=== PATIENT | female | born 1960 | race Caucasian/White ===

== ENCOUNTER 2024-02-19 06:09 | Day surgery (SDC) | payer SELFPAY, OTHER ==
[2024-02-19] VITALS (15 sets, daily range): BP systolic 123–144; BP diastolic 58–81; BMI 22.1
[2024-02-19] MEDS: TYLENOL 1000 MG PO (07:22)
[2024-02-19] MEDS: AFRIN NASAL SPRAY 2 SPRAYS NASAL (07:23)
[2024-02-19] MEDS: NORMOSOL-R 1000 IV (07:25)
[2024-02-19] MEDS: SUBLIMAZE 25 MCG IV ×2 (10:31→10:56)
== END 2024-02-19 12:18 | disposition home or self-care (01) ==
LOC: SDS 06:09
PROVIDERS: ATTENDING PHYSICIAN Otolaryngology; FAMILY PHYSICIAN Family Medicine; OTHER PHYSICIAN Ophthalmology Ophthalmic Plastic and Reconstructive Surgery
DX: Z41.1 Encounter for cosmetic surgery (principal); H04.301 Unspecified dacryocystitis of right lacrimal passage; H04.221 Epiphora due to insufficient drainage, right side; J98.8 Other specified respiratory disorders; J34.2 Deviated nasal septum
CPT/HCPCS: 31239; 68815; 30520

== ENCOUNTER 2024-02-21 06:24 | Observation (INO) | payer OTHER, SELFPAY ==
[2024-02-21 03:00] VITALS: BP 106/60
--- NOTE | 2024-02-21 03:20 | ED.GENMED ---
History of Present Illness
<Heather Vicente MD, Resident - Last Filed: 02/21/24 04:45>
General
Chief Complaint: Dehydration Symptoms
Source: patient and family
Time Seen by Provider: 02/21/24 03:06
History of Present Illness
History of Present Illness:
63-year-old female s/p septoplasty and tear duct surgery on 02/19/2024, presenting to the ED with epistaxis, nausea, vomiting, fatigue, chills. Patient stable and afebrile . Patient's is present in the room and he states that patient had 1
episode of vomiting this morning. She was given ondansetron from the plastic surgeon which made her symptoms worse. She also complains of soreness in her mouth.
Past History
<Heather Vicente MD, Resident - Last Filed: 02/21/24 04:45>
Past History
ED Past Medical History: GERD (Gastritis) and Psychiatric (anxiety)
ED Past Surgical History: Appendectomy, Tonsilectomy and Other (Breast augmentation)
Social History
Tobacco: Non-smoker
Alcohol: Occasional
Drug: None
Personal:
Living: with family
Employment: Employed
Family History
Family History: Other (Mom COPD, pancreatic cancer and her dad)
Review of Systems
<Heather Vicente MD, Resident - Last Filed: 02/21/24 04:45>
Review of Systems
Constitutional: Reports fatigue and chills
EENT: Reports tearing, mouth pain and other (Epistaxis)
Phy Exam
<Heather Vicente MD, Resident - Last Filed: 02/21/24 04:45>
General Physical Exam
General Presentation: mild distress
ENT Exam
Additional ENT: nose splint, erythema seen in post pharynx on left
Cardiovascular Exam
Cardiovascular Exam: regular rate/rhythm
Pulmonary Exam
Pulmonary Exam: lungs clear
Gastrointestinal Exam
Gastrointestinal Exam: normal bowel sounds, non tender and soft
Skin Exam
Skin Exam: warm/dry and other (poor skin turgor )
Course
<Heather Vicente MD, Resident - Last Filed: 02/21/24 04:45>
Orders/Labs/Results
Orders:
Orders
02/21/24 03:17
0.9% Sodium Chloride 500 ml [Nss] 500 ml IV BOLUS
02/21/24 03:34
Complete Blood Count/With Diff Urgent
Comprehensive Metabolic Panel Urgent
Prothrombin Time Urgent
02/21/24 04:21
HYDROmorphone [Dilaudid] 0.5 mg IV NOW STA
Metoclopramide [Reglan] 10 mg IV NOW STA
02/21/24 05:00
Flush (0.9% Sodium Chloride) [Flush (Nss)] See Dose Instructions IV PER PROTOCOL
Abnormal Lab Results
02/21/24
03:34
Absolute Neuts (auto) 7.6 H 10^3/uL
(1.4-6.5)
Absolute Monos (auto) 0.8 H 10^3/uL
(0.1-0.6)
Neutrophils % 78.2 H %
(42.2-75.2)
Lymphocytes % 13.1 L %
(20.5-51.1)
PT 16.1 H Sec
(11.4-14.6)
Glucose 101 H mg/dl
(70-99)
02/21/24 03:34
02/21/24 03:34
Vital Signs
Initial and Last Documented VS:
Initial Vital Signs
Pulse Resp BP Pulse Ox
66 26 106/60 100
02/21/24 03:00 02/21/24 03:00 02/21/24 03:00 02/21/24 03:00
Last Documented Vital Signs
Pulse Resp BP Pulse Ox
66 26 136/67 100
02/21/24 03:00 02/21/24 03:00 02/21/24 04:31 02/21/24 03:00
<Beck Dewey, DO - Last Filed: 02/21/24 04:28>
Orders/Labs/Results
Orders:
Orders
02/21/24 03:17
0.9% Sodium Chloride 500 ml [Nss] 500 ml IV BOLUS
02/21/24 03:34
Complete Blood Count/With Diff Urgent
Comprehensive Metabolic Panel Urgent
Prothrombin Time Urgent
02/21/24 04:21
HYDROmorphone [Dilaudid] 0.5 mg IV NOW STA
Metoclopramide [Reglan] 10 mg IV NOW STA
02/21/24 05:00
Flush (0.9% Sodium Chloride) [Flush (Nss)] See Dose Instructions IV PER PROTOCOL
Abnormal Lab Results
02/21/24
03:34
Absolute Neuts (auto) 7.6 H 10^3/uL
(1.4-6.5)
Absolute Monos (auto) 0.8 H 10^3/uL
(0.1-0.6)
Neutrophils % 78.2 H %
(42.2-75.2)
Lymphocytes % 13.1 L %
(20.5-51.1)
PT 16.1 H Sec
(11.4-14.6)
Glucose 101 H mg/dl
(70-99)
02/21/24 03:34
02/21/24 03:34
Vital Signs
Initial and Last Documented VS:
Initial Vital Signs
Pulse Resp BP Pulse Ox
66 26 106/60 100
02/21/24 03:00 02/21/24 03:00 02/21/24 03:00 02/21/24 03:00
Last Documented Vital Signs
Pulse Resp BP Pulse Ox
66 26 136/67 100
02/21/24 03:00 02/21/24 03:00 02/21/24 04:31 02/21/24 03:00
<Beck Dewey, DO - Last Filed: 02/21/24 04:28>
*Critical Care Note
Total Time (30-74mins, 75-104mins- exclusive of procedures): Not Applicable
<Heather Vicente MD, Resident - Last Filed: 02/21/24 04:45>
Update Note
Update Note:
63-year-old female with recent surgery of septoplasty and tear duct surgery on 02/19/2024, presenting to the ED with epistaxis, nausea, vomiting, fatigue, chills. In the ED patient is hemodynamically stable, afebrile.
Assessment and plan
Epistaxis s/p septoplasty and tear duct surgery
- Check CBC, PT/INR.
Admit to med/surg
Dehydration
-poor skin turgor , starting patient on IV fluids bolus
ED Attending Note
<Heather Vicente MD, Resident - Last Filed: 02/21/24 04:45>
-
Portions of this chart may have been created with voice recognition software.� Occasional wrong word or��sound alike� substitutions may have occurred due to the inherent limitations of voice recognition software.
<Beck Dewey, DO - Last Filed: 02/21/24 04:28>
ED Attending Note
Patient seen and examined by attending physician: Yes
I performed the substantive portion of visit, reviewed & personally made and approve the management plan that is documented in note by myself or DOREEN.: Yes
ED Attending Note:
This a pleasant 63-year-old female who presents with increased pain, nausea, and vomiting. She had septoplasty and DCL tear duct surgery on February 18. She states that she has been so nauseated that she has been unable to tolerate her pain
medications. She was prescribed Zofran which did not help. She states that the Zofran made her symptoms worse. She has not been able to eat or drink effectively. She has been having a low trickle of blood from her nostril which is expected with
the surgery. Denies fever or chills. Patient was seen in conjunction with the marriage and family teacher. I have reviewed and agree with her history and treatment plan.
Patient appears tired and dehydrated. She states that she is weak. Heart is regular rate and rhythm. Lungs are clear to auscultation.
Patient to be brought into the hospital for pain control and nausea management.
Discharge Plan
Departure
Patient Disposition: Admit
Date of Disposition: 02/21/24
Time of Disposition: 04:26
Admit to: Med/Surg
Presentation/result/management discussed w/ accepting MD/DO: Hospitalist
Condition: Fair
Discharge Problem:
Acute postoperative pain, Intractable nausea
Prescriptions:
No Action
lorazepam 0.5 MG tablet
0.5 mg PO HS PRN (Reason: Mental Health/Anxiety/sleep)
bupropion HCl 150 MG tablet extended release 24 hr
150 mg PO DAILY
famotidine
Referrals:
Rancho Zapata MD [Family Provider] -
Interventions
Interventions:
*Risk Screen - Suicide Last Done: 02/21/24 03:38
*General Assessment Last Done: 02/21/24 03:38
*Neglect/Abuse Screening Last Done: 02/21/24 03:38
*ED COVID-19 Vaccine History Last Done: 02/21/24 03:38
ED- Cardiac Assessment Last Done: 02/21/24 03:38
ED- Neurological Assessment Last Done: 02/21/24 03:38
ED- Pulmonary Assessment Last Done: 02/21/24 03:38
ED-Skin Assessment Last Done: 02/21/24 03:38
Discharge Date and Time
Print Language: BAHRAINI
[2024-02-21] MEDS: NSS 500 IV (03:36)
[2024-02-21 03:38] VITALS: BMI 21.9
[2024-02-21 03:44] LABS: % Basophils 0.3 % (0-2); % Eosinophils 0.2 % (0-6); % Immature Granulocytes 0.3 % (0-0.5); % Lymphocytes 13.1 % (20.5-51.1); % Monocytes 7.9 % (1.7-9.3); % Neutrophils 78.2 % (42.2-75.2); Absolute Lymphocytes 1.3 10^3/uL (1.2-3.4); Absolute Monocytes 0.8 10^3/uL (0.1-0.6); Absolute Neutrophils 7.6 10^3/uL (1.4-6.5); Hematocrit 38.3 % (37.0-47.0); Hemoglobin 13.4 g/dL (12.0-16.0); Mean Corpuscular Hgb 30.4 pg (27.0-31.0); Mean Corpuscular Volume 86.8 fL (81.0-99.0); Mean Platelet Volume 10.3 fL (7.4-10.4); Nucleated Red Blood Cells % 0 %; Platelet Count 212 10^3/uL (130-400); Red Blood Cell Count 4.41 10^6/uL (4.20-5.40); Red Cell Dist. Width 13.5 % (11.5-14.5); White Blood Cell Count 9.8 10^3/uL (4.8-10.8)
[2024-02-21 03:56] LABS: INR 1.28; PT 16.1 Sec (11.4-14.6)
[2024-02-21 03:58] LABS: ALT (SGPT) 16 U/L (0-35); AST (SGOT) 24 U/L (14-36); Albumin 4.3 g/dl (3.5-5.0); Alkaline Phosphatase 89 U/L (38-126); Blood Urea Nitrogen 12 mg/dl (7-17); Calcium 9.7 mg/dl (8.4-10.2); Carbon Dioxide 24 mmol/L (22-30); Chloride 103 mmol/L (98-107); Estimated Creatinine Clearance 77 ml/min; Glucose 101 mg/dl (70-99); Potassium 4.1 mmol/L (3.5-5.1); Sodium 137 mmol/L (135-145); Total Bilirubin 0.9 mg/dl (0.2-1.3); Total Protein 6.6 g/dl (6.3-8.2); eGFR > 60.00
[2024-02-21] MEDS: DILAUDID 0.5 MG IV (04:26)
[2024-02-21] MEDS: REGLAN 10 MG IV (04:26)
[2024-02-21 04:31] VITALS: BP 136/67
--- NOTE | 2024-02-21 04:54 | HPS.HSE ---
Family Physician
-
Family Physician: Rancho Zapata
Chief Complaint
-
nausea and vomiting
History of Present Illness
Ms. Miranda Pang is a 63 yo woman with hx anxiety/depression, GERD, s/p septoplasty and right dacryocystorhinostromy (DCR) with probing and stenting right lacrimal drain on 02/18 presents to the ER with nausea and vomiting.
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 She was feeling okay post-op, able to take her medications. On February 19 patient woke up feeling very nauseated and vomited, dark vomitus. She was
hesitant to take pain medication because of the nausea. She didn't eat or drink much. Dr. Morales prescribed Zofran but despite taking this she continued with nausea and dry heaves. Post vomiting patient had increased bloody drainage from her nose
and the gauze was changed multiple times. reported this to Dr. Morales who stated this is to be expected post-op.
No fevers/chills. No chest pain or shortness of breath. some abdominal cramping post vomiting. No LE swelling. No rash.
Patient was given reglan and dilaudid in the ER and nausea and pain currently controlled.
Medical History
Past Medical History
Past Medical History: Reports Other (hx anxiety/depression, GERD)
Past Surgical History: Reports Other (s/p septoplasty and right dacryocystorhinostromy (DCR) with probing and stenting right lacrimal drain on )
Social History
Tobacco: Non-smoker
Alcohol: Occasional
Family History
Family History: Not pertinent
Allergies / Home Medications
Allergies reflects when Allergies were last updated in [facility].
Home Medications with original date entered in [facility]
Allergy/Medication List:
Allergies
Allergy/AdvReac Type Severity Reaction Status Date / Time
latex Allergy cold sore Verified 02/21/24 03:03
on lips
aspirin AdvReac 'burning Verified 02/21/24 03:03
stomach'
Home Medications
bupropion HCl 150 mg 24 hr tablet, extended release 150 mg PO DAILY Depression 09/13/20
lorazepam 0.5 mg tablet 0.5 mg PO HS PRN Mental Health/Anxiety/sleep 09/13/20
famotidine 02/21/24
Review of Systems
-
History Source: Patient
A 12 point ROS was completed and negative except as noted: Yes
Physical Exam
Vital Signs
Vital Signs
Pulse Resp BP Pulse Ox
66 26 136/67 100
02/21/24 03:00 02/21/24 03:00 02/21/24 04:31 02/21/24 03:00
Physical Exam
General: No Apparent Distress
HEENT: Other (right eye tear duct with overlying gauze; bloody mucus drainge from nose with gauze underlying nostrils)
Respiratory: Clear; No Wheezes
Cardiac: S1/S2 and Regular Rhythm
GI: Soft, Non Tender and Non Distended
Musculoskeletal: No Edema
Skin: Warm and Dry; No Rash
Neuro: AO x 3
Psych: Calm
Laboratory Results
-
02/21/24 03:34
02/21/24 03:34
Laboratory Results
PT 16.1 Sec (11.4-14.6) H 02/21/24 03:34
INR 1.28 02/21/24 03:34
Total Bilirubin 0.9 mg/dl (0.2-1.3) 02/21/24 03:34
AST 24 U/L (14-36) 02/21/24 03:34
ALT 16 U/L (0-35) 02/21/24 03:34
Alkaline Phosphatase 89 U/L (38-126) 02/21/24 03:34
Data Reviewed
-
Diagnostic Radiology: Report Reviewed by me
Lab Data: Labs Reviewed by me
Impression/Plan
-
Ms. Miranda Pang is a 63 yo woman with hx anxiety/depression, GERD, s/p septoplasty and right dacryocystorhinostromy (DCR) with probing and stenting right lacrimal drain on 02/18 presents to the ER with nausea and vomiting.
Triage VS: P 66, RR 26, BP 106/60, SpO2 100%
LABS: WBC 9.8, Hg 13.4, PLT 212, Na 137, K+ 4.1, CO2 24, Cr 0.6, Glucose 101, liver enzymes WNL
MAR: IVF, Dilaudid, Reglan
Post-op Nausea and Vomiting
Epistaxis - degree normal post-op
s/p septoplasty
s/p right DCR with probing and stenting of right lacrimal drain
-etiology of nausea may be 2/2 anesthesia, opiates or pain
-admit to observation
-continue running IVF
-CLD, advance diet as tolerated
-IV dilaudid for pain; IV Compazine PRN Nausea
-Patient's ENT physician, Dr. Morales consulted
-* states patient was prescribed eye drops for her right eye post surgery. He will go home and bring in drops, unsure of name
-Patient was prescribed 10 days of Keflex, will give IV Cefazolin here given significant nausea
Anxiety
-ETL MANAGER Bupropron
-Lorazepam PRN
DVT PPx SCD
FULL CODE
[2024-02-21 05:00] VITALS: BP 119/56
[2024-02-21 06:00] VITALS: BP 111/53
[2024-02-21] MEDS: FLUSH (NSS) 1 FLUSH IV (07:12)
[2024-02-21] MEDS: PEPCID 20 MG IV (07:12)
[2024-02-21] MEDS: ANCEF 10 IV ×2 (07:12→14:49)
[2024-02-21] MEDS: COMPAZINE 5 MG IV (07:38)
[2024-02-21 08:25] VITALS: BP 149/73; BMI 20.3
[2024-02-21] MEDS: NSS 1000 IV (09:09)
[2024-02-21] MEDS: WELLBUTRIN XL (24 hour extended release) 150 MG PO (09:09)
--- NOTE | 2024-02-21 11:50 | W.PN.HOSP.TC ---
Addendum entered and electronically signed by Adelaida Jurado MD 02/22/24 15:36:
Dictation- [id number]
Original Note:
Today's Communication/Plan
-
Advance diet as tolerated
IVF
ENT to evaluate today with oozing from packing
Assessment / Plan
Assessment / Plan
63-year-old female had septoplasty, right dacryocystorhinostomy (DCR) with probing and stenting right lacrimal drain on 02/18 presents to the ER with nausea and vomiting. She had a deviated septum and chronic tearing of the right eye. Patient was
initially feeling okay. But on February 19 was very nauseated and vomited. Also reported poor p.o. intake. Zofran was prescribed but despite taking that did not feel better. Also had some increased bloody drainage from her nose. No fevers or chills.
Zofran made her better
CVS: S1-S2 normal
Chest: CTA B/L
Abdomen: Soft, NT / Bowel sounds present
Extremities: No edema
INSULATION INSPECTOR: Non focal exam,neck supple
Right eye with steristrip at outer corner
Nostrils with packing and also she has placed a dressing
# Postop nausea and vomiting
Better this am
Symptomatic treatment
Likely secondary to anesthesia/opiates/pain
Continue IV fluids.
Clear liquid diet and advance as tolerated
#Dacryocystorhinostomy (DCR) with probing and stenting right lacrimal drain on 02/18
Consulted.
brought eye drops
D/W RN to send to pharmacy to identify -[id number] [id number]
Continue Ancef while here and she was prescribed 10 days of Keflex as outpatient-given nausea
# Anxiety/depression-continue bupropion, lorazepam as needed
# GERD/history of gastritis-continue Pepcid
# History of migraines
# Fibromyalgia/herniated disc
# Moderate discogenic degenerative disease C spine
# Mild Chiari I malformation.
# DVT prophylaxis-SCDs
# Full code
D/W RN
D/W
Anticipated Discharge: Within 24 hours
Subjective/Interval History
-
Date of Service: February 21, 2024
Objective Data
-
Labs:
Laboratory Results
02/21/24
03:34
WBC 9.8
Hgb 13.4
Hct 38.3
Plt Count 212
PT 16.1 H
INR 1.28
Sodium 137
Potassium 4.1
Chloride 103
Carbon Dioxide 24
BUN 12
Creatinine 0.6
Glucose 101 H
Calcium 9.7
Total Bilirubin 0.9
AST 24
ALT 16
Alkaline Phosphatase 89
Vital Signs:
Vital Signs
Temp Pulse Resp BP Pulse Ox
98.1 F 76 16 149/73 98
02/21/24 08:25 02/21/24 08:25 02/21/24 08:25 02/21/24 08:25 02/21/24 08:25
[2024-02-21] MEDS: NON-FORMULARY ITEM 1 UNIT OPHTH (14:49)
[2024-02-21 15:00] VITALS: BP 124/63
--- NOTE | 2024-02-21 18:29 | PTCARENOTE ---
Pt stated that she felt better and was ready to leave at 17:00. Dr notified but pt hadn't advanced her diet. Dr was unwilling to discharge her without having had more solid food. Pt decided to leave AMA. Attending was no longer in the hospital. she
was notified. Cross coverage was notified. He came and spoke to the pt. Paper work was signed. Pt left with her .
--- NOTE | 2024-02-22 11:18 | W.PN.UPDATE ---
Update Note
Progress Note Update
Patient request to leave against medical advice 02/20. Risks of leaving AGAINST MEDICAL ADVICE not excluding aspiration, recurrence of bleeding, were explained and patient verbally agreed. Patient reiterated understanding of risks. Patient
still desired to leave AMA.
== END 2024-02-21 17:31 | disposition left against medical advice (07) ==
LOC: 4 WEST ACU 06:24
PROVIDERS: Student in an Organized Health Care Education/Training Program; ADMITTING PHYSICIAN Student in an Organized Health Care Education/Training Program; ATTENDING PHYSICIAN Hospitalist; EMERGENCY PHYSICIAN Student in an Organized Health Care Education/Training Program; FAMILY PHYSICIAN Family Medicine
DX: G89.18 Other acute postprocedural pain (principal); R11.2 Nausea with vomiting, unspecified; E86.0 Dehydration; R04.0 Epistaxis; R53.83 Other fatigue; R68.83 Chills (without fever); F41.9 Anxiety disorder, unspecified; K21.9 Gastro-esophageal reflux disease without esophagitis; R53.1 Weakness; M79.7 Fibromyalgia; G93.5 Compression of brain; F32.A Depression, unspecified; Z91.040 Latex allergy status; Z88.6 Allergy status to analgesic agent; Z87.19 Personal history of other diseases of the digestive system; Z90.49 Acquired absence of other specified parts of digestive tract
CPT/HCPCS: 80053; 85025; 85610; 96361; 96374; 96375; 99285; G0378

== ENCOUNTER → 2025-03-01 19:03 | Outpatient (REF) | payer OTHER, SELFPAY | LOC: WDC 19:03 | PROVIDERS: ATTENDING PHYSICIAN Obstetrics & Gynecology; FAMILY PHYSICIAN Family Medicine | DX: Z12.31 Encounter for screening mammogram for malignant neoplasm of breast (principal) | CPT/HCPCS: 77063; 77067 ==

== ENCOUNTER → 2025-03-02 17:07 | Outpatient (REF) | payer OTHER, SELFPAY | LOC: RAD 17:07 | PROVIDERS: ATTENDING PHYSICIAN Obstetrics & Gynecology; PRIMARYCARE PHYSICIAN Family Medicine | DX: R10.2 Pelvic and perineal pain (principal) | CPT/HCPCS: 76830; 76856 ==

== ENCOUNTER 2025-05-14 06:13 | Day surgery (SDC) | payer OTHER, SELFPAY | END 2025-05-14 11:03 | disposition home or self-care (01) | LOC: GI 06:13 | PROVIDERS: ATTENDING PHYSICIAN Internal Medicine Gastroenterology | DX: Z12.11 Encounter for screening for malignant neoplasm of colon (principal); K64.8 Other hemorrhoids; R12 Heartburn; K31.89 Other diseases of stomach and duodenum; K29.50 Unspecified chronic gastritis without bleeding; Z86.0100 Personal history of colon polyps, unspecified | CPT/HCPCS: 43239; G0105; 88305; 88342 ==